=== PATIENT | female | born 1955 | race Two or more races ===

== ENCOUNTER → 2017-01-25 | Outpatient (CLI) | payer BC ==
[2016-02-23 08:26] VITALS: BP 145/65
[~2017-01-25] MED LIST: ALPR0.254 PO; ASPI-482 PO; ATOR10TA60 PO; Aspirin PO; Cholesterol med PO; DULO60CA44 PO; HTN medication PO; HYDR25TA9 PO; LEVO25TA55 PO; Paxil PO; Synthroid PO; Xanax PO
--- NOTE | 2017-01-25 09:52 | KCIC ---
INDICATION: Multinodular thyroid. TECHNIQUE: Thyroid ultrasound was performed. Comparison is from August 22, 2016. FINDINGS: Right thyroid lobe measures 5.4 x 1.7 x 2.0 cm and the left 5.7 x 2.3 x 1.8 cm. The isthmus measures 0.6 cm. Multiple bilateral nodules are noted. Solid nodule in the superior right thyroid lobe measures up to 11 mm, up to 9 mm on prior. Solid nodule inferiorly measures 7 mm, up to 6 mm on prior. On the left, there is a 16 x 12 x 12 mm complex nodule superiorly which measured up to 18 x 13 mm on prior. There is an 8 mm solid nodule in the mid left thyroid lobe which was not measured on prior but probably was present. There is an 18 x 14 x 8 mm nodule inferiorly and measured up to 1.2 cm on prior. This nodule has ill-defined margins although does appear to have increased in size. IMPRESSION: 1. Bilateral thyroid nodules again noted. The largest nodule inferiorly on the left appears slightly increased in size. The right superior nodule also may be minimally increased. Electronically signed by: Lonnie Alexander MD (01/25/2017 9:48 AM) [place] [id number]
== END | disposition home or self-care (01) ==
LOC: KCIC US 08:47
PROVIDERS: ATTEND Surgery
DX: E04.2 Nontoxic multinodular goiter (principal)
CPT/HCPCS: 76536

== ENCOUNTER → 2017-02-10 | Outpatient (CLI) | payer BC ==
[~2017-02-10] VITALS: Ht 149.9 cm; Wt 111.1 kg
[~2017-02-10] MED LIST changes: +DULO30CA43 PO
[2017-02-10 13:44] VITALS: BP 149/66
--- NOTE | 2017-02-10 16:03 | RAD ---
ULTRASOUND-GUIDED FINE NEEDLE ASPIRATION Clinical Indication: RT AND LEFT THYROID NODULES Comparison: Thyroid ultrasound 01/25/2017 Procedure: The risks, benefits, and alternatives of the procedure are discussed with the patient. Written informed consent was obtained. Skin site is prepped and draped in normal sterile fashion. 1% lidocaine is used for superficial and deep local anesthesia extending to the right left thyroid nodules. Left thyroid nodule: 3 separate passes were made with a 25-gauge needle and a final pass with a Rotex needle device. Right thyroid nodule: 3 separate passes were made with a 25-gauge needle. Findings: Redemonstration of bilateral thyroid nodules. There is a small superficial hematoma on postprocedural images measuring approximately 1 cm. Patient remained in the department and left in stable condition. Impression: FNA of bilateral thyroid nodules, pathology pending.
== END | disposition home or self-care (01) ==
LOC: US 13:30
PROVIDERS: ATTEND Surgery
DX: E04.2 Nontoxic multinodular goiter (principal)
CPT/HCPCS: 60300; 76942

== ENCOUNTER → 2017-06-06 | Day surgery (SDC) | payer BC ==
[~2017-06-06] MED LIST changes: +IV RINGERS,LACTATED 1000ML 1,000 ML IV SCH; +LIDOCAINE 1% PF 2 ML VIAL. ID PRN; +LIDOCAINE 2% PF Vial for OR 5 ML VIAL. ONE; +ONDANSETRON PF 4 MG/2 ML VIAL. IV PRN; +PROCHLORPERAZINE 10 MG/2 ML VIAL. IV PRN; +PROPOFOL 40 ML IV ONE; +fentaNYL PF VIAL 100 MCG/2 ML VIAL IV PRN
[2017-06-06 17:18] VITALS: BP 131/67
== END ==
LOC: ENDOS 15:00
PROVIDERS: ATTEND Internal Medicine Gastroenterology
DX: Z86.010 Personal history of colon polyps (principal); K64.0 First degree hemorrhoids; M19.90 Unspecified osteoarthritis, unspecified site; E78.00 Pure hypercholesterolemia, unspecified; F41.9 Anxiety disorder, unspecified; E11.9 Type 2 diabetes mellitus without complications; I10 Essential (primary) hypertension; Z98.890 Other specified postprocedural states; Z80.0 Family history of malignant neoplasm of digestive organs
CPT/HCPCS: 45378; J2704; J2001

== ENCOUNTER → 2018-11-14 | Outpatient (CLI) | payer BC ==
[2017-06-06 17:18] VITALS: BP 131/67
[~2018-11-14] MED LIST changes: +HYDR-2145 PO; -HYDR25TA9 PO; -IV RINGERS,LACTATED 1000ML 1,000 ML IV SCH; -LIDOCAINE 1% PF 2 ML VIAL. ID PRN; -LIDOCAINE 2% PF Vial for OR 5 ML VIAL. ONE; -ONDANSETRON PF 4 MG/2 ML VIAL. IV PRN; -PROCHLORPERAZINE 10 MG/2 ML VIAL. IV PRN; -PROPOFOL 40 ML IV ONE; -fentaNYL PF VIAL 100 MCG/2 ML VIAL IV PRN
--- NOTE | 2018-11-14 16:20 | KCIC ---
Examination: Ultrasound thyroid HISTORY: History of multinodular thyroid goiter COMPARISON: 09/19/2017 FINDINGS: The right lobe of thyroid gland measures 5.5 x 2.0 x 1.6 cm. The left lobe of the thyroid gland measures 5.0 x 2.0 x 1.6 cm. There is a 8.6 mm solid nodule identified in the superior right lobe of the right gland. There is a 7 mm solid nodule identified in the inferior right lobe of thyroid gland. Multiple subcentimeter nodules identified in the right lower thyroid gland. There is a 1.0 cm solid nodule identified in the superior left lobe of thyroid gland. There is a 7.5 mm solid nodule identified in the mid left lobe of thyroid gland. There is a solid nodule with calcifications measuring 1.3 cm in the inferior left lobe of the thyroid gland. There are multiple small subcentimeter nodules identified in the left lobe of the thyroid gland. There is a small 7 mm nodule identified in the isthmus of thyroid gland. IMPRESSION: Multiple nodules identified in the right and left lobes of the thyroid gland, similar to prior exam. Electronically signed by: Miguel Ángel Hyatt MD (11/14/2018 4:17 PM) [id number]
== END | disposition home or self-care (01) ==
LOC: KCIC US 15:19
PROVIDERS: ATTEND Surgery
DX: E04.2 Nontoxic multinodular goiter (principal)
CPT/HCPCS: 76536

== ENCOUNTER → 2020-01-27 | Outpatient (CLI) | payer BC ==
[2017-06-06 17:18] VITALS: BP 131/67
[~2020-01-27] MED LIST changes: -DULO30CA43 PO; +DULO30CA44 PO; -DULO60CA44 PO; +DULO60CA45 PO
--- NOTE | 2020-01-27 17:48 | RAD ---
Examination: THYROID ULTRASOUND History: Reason: MULTINODULAR GOITER / Comparison/Correlation: 11/14/2018, 09/19/2017, 01/25/2017 thyroid ultrasound Findings: Thyroid ultrasound exam was performed. Right thyroid lobe measures 5.5 cm x 2 cm x 1.6 cm. Left thyroid lobe measures 5.8 cm x 1.9 cm x 2 cm. Normal flow bilaterally seen involving the thyroid gland. Thyroid isthmus measures up to 0.4 cm anteroposterior. Multiple thyroid nodules are again seen bilaterally. The largest on the right measures up to 0.9 cm in maximum dimension at the superior pole. At the inferior pole, there is 0.8 cm diameter nodule. A few small nodules are seen otherwise involving the right thyroid lobe. The left thyroid upper pole, there is a 1.3 cm x 0.8 cm 0.8 similar nodule. At the lower pole, there are is a nodule with multiple calcifications within them and has remained stable. Small nodules are also present along the left thyroid lobe. A small nodule involving the thyroid isthmus measuring 0.6 cm also seen. There is no new dominant nodule in the interval. No definite suspicious features are evident involving the nodules present. Impression: TI-RADS Category 2-benign. No suspicious findings. Stable nodules Electronically signed by: Jerson Moran MD (01/27/2020 5:45 PM) [id number]
== END | disposition home or self-care (01) ==
LOC: US 12:22
PROVIDERS: ATTEND Surgery
DX: E04.2 Nontoxic multinodular goiter (principal)
CPT/HCPCS: 76536

== ENCOUNTER 2020-05-02 16:47 | Emergency (ER) | payer BC ==
[~2020-05-02] VITALS: Ht 154.9 cm; Wt 106.0 kg
--- NOTE | 2020-05-02 18:46 | PHYS DOC ---
Past Medical History Past Medical History: Anxiety, High Cholesterol, Hypertension Past Surgical History: Tonsillectomy Smoking Status: Never Smoker Alcohol Use: None Drug Use: None General Adult EDM: Chief Complaint: MULTIPLE TRAUMA/FALL HPI: HPI: Patient is a 64 year old female with a past medical history of hypertension, hyperlipidemia, pre-DM, and anxiety presents with the chief complaint of right sided chest wall pain. Patient states she was riding a horse when she feel off. States she was approximately 3ft off the ground. Patient landed on her right side-- right sided lateral rib pain. Area is tender to palpation. Pain exacerbated with movement and deep breath. Lungs are clear. Patient is not hypoxic or tachycardic. Lungs sounds are clear bilateral. Review of Systems: Review of Systems: Constitutional: Denies fever or chills. [] Eyes: Denies change in visual acuity. [] HENT: Denies nasal congestion or sore throat. [] Respiratory: Denies cough or shortness of breath. [] Cardiovascular: Denies chest pain or edema. [] GI: Denies abdominal pain, nausea, vomiting, bloody stools or diarrhea. [] : Denies dysuria. [] Musculoskeletal: Denies back pain or joint pain. [] Integument: Denies rash. [] Neurologic: Denies headache, focal weakness or sensory changes. [] Endocrine: Denies polyuria or polydipsia. [] Lymphatic: Denies swollen glands. [] Psychiatric: Denies depression or anxiety. [] Heart Score: Risk Factors: Risk Factors: DM, Current or recent (<one month) smoker, HTN, HLP, family history of CAD, obesity. Risk Scores: Score 0 - 3: 2.5% MACE over next 6 weeks - Discharge Home Score 4 - 6: 20.3% MACE over next 6 weeks - Admit for Clinical Observation Score 7 - 10: 72.7% MACE over next 6 weeks - Early Invasive Strategies Allergies: Allergies: Allergies Coded Allergies Type Severity Reaction Last Updated Verified amoxicillin Allergy Unknown Rash 05/02/20 Yes Physical Exam: PE: Constitutional: Well developed, well nourished, no acute distress, non-toxic appearance. [] HENT: Normocephalic, atraumatic, bilateral external ears normal, oropharynx m oist, no oral exudates, nose normal. [] Eyes: PERRLA, EOMI, conjunctiva normal, no discharge. [] Neck: Normal range of motion, no tenderness, supple, no stridor. [] Cardiovascular:Heart rate regular rhythm, no murmur [] Lungs & Thorax: Bilateral breath sounds clear to auscultation [] Abdomen: Bowel sounds normal, soft, no tenderness, no masses, no pulsatile masses. [] Skin: Warm, dry, no erythema, no rash. [] Back: No tenderness, no CVA tenderness. [] Extremities: No tenderness, no cyanosis, no clubbing, ROM intact, no edema. [] Neurologic: Alert and oriented X 3, normal motor function, normal sensory function, no focal deficits noted. [] Psychologic: Affect normal, judgement normal, mood normal. [] Current Patient Data: Vital Signs: Vital Signs Date Time Temp Pulse Resp B/P (MAP) Pulse Ox O2 Delivery O2 Flow Rate FiO2 05/02/20 17:11 98.2 66 18 128/70 (89) 95 Room Air 98.2 EKG: EKG: [] Radiology/Procedures: Radiology/Procedures: [] Impression: Mild patchy consolidative changes in the right lateral lung. No pleural effusion. Mildly displaced fractures involving the lateral third, fourth, fifth and sixth ribs.. IMPRESSION: Mildly displaced fractures involving the right lateral third through sixth ribs. Underlying adjacent patchy airspace disease may relate to contusion. Course & Med Decision Making: Course & Med Decision Making Pertinent Labs and Imaging studies reviewed. (See chart for details) []Will Rx naprosyn. Patient to continue norco as needed. Patient to use IS q 4hours Darrel Disclaimer: Darrel Disclaimer: This electronic medical record was generated, in whole or in part, using a voice recognition dictation system. Departure Departure Impression: Primary Impression: Ribs, multiple fractures Disposition: 01 DC HOME SELF CARE/HOMELESS Condition: STABLE Referrals: [facility] (PCP) Patient Instructions: Rib Fracture Scripts Naproxen (NAPROSYN) 500 Mg Tablet 500 MG PO BID for 10 Days, #20 TAB Prov: ASYA CHILDS I DO 05/02/20 ASYA CHILDS I DO May 02, 2020 18:46
[2020-05-02] MEDS ORDERED: KETOROLAC 30 MG/ML VIAL. IVP ONE (19:00)
--- NOTE | 2020-05-02 19:44 | RAD ---
Exam: Right RIBS with PA chest INDICATION: Fall off horse TECHNIQUE: Frontal view of the chest with oblique and lateral views of the right ribs. Comparisons: None FINDINGS: The cardiomediastinal silhouette and pulmonary vessels are within normal limits. Mild patchy consolidative changes in the right lateral lung. No pleural effusion. Mildly displaced fractures involving the lateral third, fourth, fifth and sixth ribs.. IMPRESSION: Mildly displaced fractures involving the right lateral third through sixth ribs. Underlying adjacent patchy airspace disease may relate to contusion. Electronically signed by: Leroy Whitt MD (05/02/2020 7:41 PM) [id number]
[2020-05-02] MEDS ORDERED: NAPR-683 PO (19:49)
[2020-05-02 19:59] VITALS: BP 143/59
== END 2020-05-02 19:59 | disposition home or self-care (01) ==
LOC: ER 16:47
DX: S22.41XA Multiple fractures of ribs, right side, initial encounter for closed fracture (principal); F41.9 Anxiety disorder, unspecified; E78.00 Pure hypercholesterolemia, unspecified; I10 Essential (primary) hypertension; Z90.89 Acquired absence of other organs; Z88.1 Allergy status to other antibiotic agents; W18.39XA Other fall on same level, initial encounter; Y93.89 Activity, other specified; Y92.89 Other specified places as the place of occurrence of the external cause; Y99.8 Other external cause status
CPT/HCPCS: 71101; 96374; 99283; J1885

== ENCOUNTER → 2021-02-23 | Outpatient (CLI) | payer BC ==
[~2021-02-23] MED LIST changes: +NAPR-683 PO
--- NOTE | 2021-02-23 16:35 | KCIC ---
EXAM: THYROID ULTRASOUND. HISTORY: Thyroid nodule. Prior thyroid biopsy. COMPARISON: 01/27/2020. FINDINGS: Sonographic evaluation of the thyroid gland was performed and evaluated using ACR TI-RADS c riteria. Right lobe: The right lobe measures 5.2 x 1.8 x 1.0 cm. The parenchyma is mildly heterogeneous. 2 hyp oechoic nodules within the upper and lower poles measure 8 x 7 mm. There is no clear internal perfusi on on Doppler. Left lobe: The left lobe measures 5.2 x 2.1 x 1.4 cm. The parenchyma is mildly heterogeneous. A solid hypoechoic nodule at the upper pole measures 10 x 8 x 8 mm. A solid hypoechoic nodule in the interpo lar region measures 9 x 8 x 5 mm. A heterogeneous mostly hypoechoic nodule at the lower pole is lobul ated and contains a few echogenic foci suggesting calcifications. It measures 11 x 8 x 7 mm. Isthmus: The isthmus measures 5 mm. A hypoechoic nodule measures 7 x 5 mm. IMPRESSION/RECOMMENDATION: 1. Bilateral thyroid nodules appears stable. The largest is an 11 mm TI-RADS 5 nodule at the left low er pole. Correlation with prior biopsy results and ongoing follow-up are suggested. Electronically signed by: Amarjit Sánchez MD (02/23/2021 4:33 PM) [id number]
== END ==
LOC: KCIC US 15:34
PROVIDERS: ATTEND Surgery
DX: E04.2 Nontoxic multinodular goiter (principal)
CPT/HCPCS: 76536